=== PATIENT | female | born 1975 | race Caucasian/White ===

== ENCOUNTER 2017-02-01 23:31 | Emergency (ER) | payer SELFPAY ==
[2017-02-02 00:13] VITALS: BP 172/104
[2017-02-02 01:04] LABS: Basophils % (Auto) 0.4 % (0.0-1.8); Hematocrit 47.4 % (30.3-42.9); Hemoglobin 15.5 gm/dl (10.1-14.3); Mean Corpuscular HGB Conc 33 % (30-34); Mean Corpuscular Hemoglobin 27 pg (28-32); Mean Corpuscular Volume 84 fl (79-97); Platelet Count 190 K/mm3 (140-440); Red Blood Count 5.66 M/mm3 (3.65-5.03); Red Cell Distribution Width 14.9 % (13.2-15.2); White Blood Count 11.7 K/mm3 (4.5-11.0)
[2017-02-02 01:06] LABS: Anion Gap 18 mmol/L; BUN/Creatinine Ratio 26.66; Blood Urea Nitrogen 16 mg/dL (7-17); Calcium 9.2 mg/dL (8.4-10.2); Carbon Dioxide 28 mmol/L (22-30); Chloride 97.5 mmol/L (98-107); Glucose 192 mg/dL (65-100); Potassium 4.8 mmol/L (3.6-5.0); Sodium 139 mmol/L (137-145)
[2017-02-02 02:56] LABS: Bacteria,Urine 4+ /HPF (Negative); Bilirubin,Urine NEG (Negative); Blood,Urine NEG (Negative); Ketones,Urine NEG (Negative); Leukocyte Esterase,Urine NEG (Negative); Mucus,Urine 2+ /HPF; Nitrite,Urine NEG (Negative); Protein,Urine <15 mg/dL mg/dL (Negative); Urobilinogen,Urine < 2.0 mg/dL (<2.0)
--- NOTE | 2017-02-05 07:47 | ED Elopement Review ---
ED Pt Elopement review - Results review Lab results: Laboratory Tests 02/02/17 02/02/17 02/02/17 00:25 00:25 02:19 WBC 11.7 H RBC 5.66 H Hgb 15.5 H Hct 47.4 H MCV 84 MCH 27 L MCHC 33 RDW 14.9 Plt Count 190 Lymph % (Auto) 17.9 [place] % (Auto) 8.5 H Eos % (Auto) 2.0 Baso % (Auto) 0.4 Lymph # 2.1 [place] # 1.0 H Eos # 0.2 Baso # 0.0 Seg Neutrophils % 71.2 H Seg Neutrophils # 8.3 H Sodium 139 Potassium 4.8 Chloride 97.5 L Carbon Dioxide 28 Anion Gap 18 BUN 16 Creatinine 0.6 L Estimated GFR > 60 BUN/Creatinine Ratio 26.66 Glucose 192 H Calcium 9.2 Urine Color Yellow Urine Turbidity Clear Urine pH 5.0 Ur Specific [place] 1.023 Urine Protein <15 mg/dl Urine Glucose (UA) Neg Urine Ketones Neg Urine Blood Neg Urine Nitrite Neg Urine Bilirubin Neg Urine Urobilinogen < 2.0 Ur Leukocyte Esterase Neg Urine WBC (Auto) 4.0 Urine RBC (Auto) 1.0 U Epithel Cells (Auto) 7.0 Urine Bacteria (Auto) 4+ Hyaline Casts 2 Urine Mucus 2+ Urine HCG, Qual Negative - Call Back decision Pt Call Back Decision: No action required
== END 2017-02-02 03:33 | disposition left against medical advice (07) ==
LOC: ED 23:31
DX: R11.11 Vomiting without nausea (principal); R51 Headache; Z53.21 Procedure and treatment not carried out due to patient leaving prior to being seen by health care provider
CPT/HCPCS: 36415; 80048; 81001; 81025; 85025